=== PATIENT | female | born 1935 ===

== ENCOUNTER 2024-01-07 15:50 | Inpatient (IN) | payer MEDICAID, MEDICARE ==
[~2024-01-07 15:50] MED LIST: Iopamidol 370 76% 100 ML VIAL ONE; Iopamidol-370 76% 500 ML MDV (1 ML CHARGE) ONE
[2024-01-07] MEDS ORDERED: niCARdipine 25 MG/10 ML SDV ONE (15:53)
[2024-01-07 16:05] LABS: #Basophils 0.04 10x3/uL (0.0-0.2); %Basophils 0.6 % (0.0-1.0); %Eosinophils 2.3 % (0.0-10.0); %Lymphocytes 29.8 % (21.0-51.0); %Monocytes 11.8 % (0.0-10.0); %Neutrophils 55.2 % (42.0-75.0); Hematocrit 30.1 % (36.0-47.0); Hemoglobin 9.4 g/dL (12.0-16.0); Mean Corpuscular HGB CONC 31.2 g/dL (32.0-36.0); Mean Corpuscular Hemoglobin 26.4 pg (27.0-31.0); Mean Corpuscular Volume 84.6 fL (78.0-98.0); Mean Platelet Volume 9.7 fL (7.4-10.4); Platelet Count 294 10x3/uL (130-400); RBC Distribution Width 15.6 % (11.5-14.5); Red Blood Cell (RBC) Count 3.56 mill/uL (4.20-5.40)
[2024-01-07 16:17] LABS: Lipase 17 U/L (8-78)
[2024-01-07 16:18] LABS: INR-International Normal Ratio 1.2; PTT 28.8 sec (22.9-36.1); Prothrombin Time 14.8 sec (12.0-14.7)
[2024-01-07 16:19] LABS: ALT (SGPT) 13 U/L (8-55); AST (SGOT) 22 U/L (5-34); Albumin 3.6 g/dL (3.4-4.8); Alkaline Phosphatase 78 U/L (40-110); Anion Gap 13 mmol/L (10-20); BUN (Urea Nitrogen) 17 mg/dL (9.8-20.1); Bilirubin, Total 0.4 mg/dL (0.2-1.2); Calc. Creatinine Clearance 0 mL/min (70-130); Calcium 8.9 mg/dL (7.8-10.44); Carbon Dioxide 24 mmol/L (23-31); Chloride 104 mmol/L (98-107); Estimated GFR 63; Globulin 3.2 g/dL (2.4-3.5); Glucose 109 mg/dL (83-110); Potassium 4.2 mmol/L (3.5-5.1); Protein, Total 6.8 g/dL (5.8-8.1); Sodium 137 mmol/L (136-145)
[2024-01-07 16:20] LABS: Acetaminophen Less than 10 mcg/mL (Less than 10); Alcohol Less than 10.0 mg/dL (Less than 10); Salicylate Less than 8.0 mg/dL (Less than 8.0)
[2024-01-07] MEDS ORDERED: Etomidate 40 MG (20 mL) VIAL ONE (16:20)
[2024-01-07] MEDS ORDERED: Rocuronium Bromide 10 MG/ML (10ML VIAL) ONE (16:20)
[2024-01-07 16:25] LABS: Troponin I 0.014 ng/mL (< 0.028)
[2024-01-07] MEDS ORDERED: Vasopressin 20 UNITS/ML VIAL ONE (16:31)
[2024-01-07] MEDS ORDERED: fentaNYL PF 100 MCG/2 ML SYRINGE ONE (16:31)
[2024-01-07] MEDS ORDERED: SUGAMMADEX SODIUM 200 MG/2 ML VIAL ONE (16:31)
[2024-01-07] MEDS ORDERED: PHENYLEPHRINE-NS 100 MCG/ML 10 ML SYRINGE ONE (16:32)
[2024-01-07] MEDS ORDERED: Heparin 10,000 UNITS/ 10 ML VIAL ONE (16:37)
[2024-01-07 16:46] LABS: Actual Bicarbonate (HCO3a) 22.2 mEq/L (22-28); Analyzer IN Cardio ER; Base Excess (BEa) -0.5 mEq/L (-2.0 to +3.0); CO2 Tension 29.3 mmHg (35.0-45.0); Calcium, Ionized (arterial) 1.11 mmol/L (1.12-1.30); Carboxyhemoglobin (COHb) 0.7 gm% (0.0-3.0); Hematocrit-ABG 28 % (36.0-47.0); Hemoglobin (Hb) 9.5 g/dL (12.0-16.0); Potassium - ABG Lab 3.34 mmol/L (3.70-5.30); pH, Arterial 7.497 (7.35-7.45)
[2024-01-07 16:49] LABS: Digoxin 0.75 ng/mL (0.8-2.0)
[2024-01-07 17:13] LABS: ALV-art Gradient -76.125 mmHg (0-20); Puncture Site Left Radial artery
[2024-01-07] MEDS ORDERED: Communication Order-Pharmacy FS SCH (17:30)
[2024-01-07] MEDS ORDERED: niCARdipine 25 MG in Sodium Chloride 0.9% 250 ML 250 ML IVPB PRN (17:30)
[2024-01-07] MEDS ORDERED: Tenecteplase 50 MG ONE (17:33)
[2024-01-07] MEDS: Sodium Chloride 0.9% 1,000 ML IV SCH (18:25)
[2024-01-07] MEDS: Fentanyl CADD 100 ML IV SCH (18:26)
[2024-01-07] MEDS: Labetalol HCl 100 MG/20 ML VIAL SLOW IVP PRN (19:21)
[2024-01-07 19:25] VITALS: BMI 25.4
[2024-01-07] MEDS: hydrALAZINE 20 MG/ML VIAL SLOW IVP PRN (19:52)
[2024-01-07] MEDS ORDERED: Ventilator Sedation Protocol 1 EACH FS SCH (19:55)
[2024-01-07] MEDS: Propofol 1,000 MG/100 ML VIAL IV PRN (20:12)
[2024-01-07] MEDS ORDERED: Fentanyl BOLUS 250 ML IVPB PRN (20:15)
[2024-01-07] MEDS ORDERED: Fentanyl CADD 100 ML IV SCH (20:15)
[2024-01-07] MEDS ORDERED: DISCONTINUE PREVIOUS NARCOTIC PAIN MEDICATIONS AND BENZODIAZEPINES FS SCH (20:15)
[2024-01-07] MEDS ORDERED: Morphine 2 MG/ML VIAL SLOW IVP PRN (20:15)
[2024-01-07] MEDS ORDERED: Propofol BOLUS 1,000 MG/100 ML VIAL IV PRN (20:15)
[2024-01-07] MEDS ORDERED: Dextrose 50% Abboject 50 ML SYRINGE SLOW IVP PRN (21:34)
[2024-01-07] MEDS ORDERED: Glucagon 1 MG/ML KIT IM PRN (21:34)
[2024-01-07] MEDS ORDERED: Dextrose 5% in Water 1,000 ML IV PRN (21:34)
[2024-01-08] MEDS: Famotidine/PF 20 mg/2ml Vial SLOW IVP SCH (10:06)
[2024-01-08 11:54] LABS: Base Excess -4.4 mEq/L (-2.0 to +3.0); Calcium, Ionized (venous) 1.01 mmol/L (1.16-1.32); Chloride (VBG) 106 mmol/L (98-106); Hematocrit-VBG 30 % (36.0-47.0); Hemoglobin (Hb) 10.1 g/dL (11.7-16.1); Potassium (VBG) 3.86 mmol/L (3.70-5.30); pH (venous) 7.429 (7.32-7.43)
[2024-01-08 12:17] LABS: Hematocrit 29.4 % (36.0-47.0); Hemoglobin 8.9 g/dL (12.0-16.0)
[2024-01-08 12:31] LABS: Anion Gap 10 mmol/L (10-20); BUN (Urea Nitrogen) 13 mg/dL (9.8-20.1); Calc. Creatinine Clearance 60 mL/min (70-130); Calcium 8.1 mg/dL (7.8-10.44); Carbon Dioxide 22 mmol/L (23-31); Chloride 110 mmol/L (98-107); Estimated GFR 83; Glucose 119 mg/dL (83-110); Potassium 3.7 mmol/L (3.5-5.1); Sodium 138 mmol/L (136-145)
[2024-01-08] MEDS: Lorazepam 2 MG/ML VIAL SLOW IVP PRN (19:12)
[2024-01-08 19:36] LABS: Cardiac Risk 3.3 (Less than 4.5)
[2024-01-09] MEDS: Famotidine/PF 20 mg/2ml Vial SLOW IVP SCH (02:45)
[2024-01-09] MEDS: FLU (Fluad Triv) TS24-25 (65UP)/MF59C/PF 45 MCG/0.5 ML Syringe IM ONE (02:46)
[2024-01-09 04:08] LABS: Hematocrit 28.2 % (36.0-47.0); Hemoglobin 8.5 g/dL (12.0-16.0); Mean Corpuscular HGB CONC 30.1 g/dL (32.0-36.0); Mean Corpuscular Hemoglobin 26.6 pg (27.0-31.0); Mean Corpuscular Volume 88.1 fL (78.0-98.0); Mean Platelet Volume 10.1 fL (7.4-10.4); Platelet Count 198 10x3/uL (130-400); RBC Distribution Width 16.2 % (11.5-14.5)
[2024-01-09 04:21] LABS: Anion Gap 11 mmol/L (10-20); BUN (Urea Nitrogen) 10 mg/dL (9.8-20.1); Calc. Creatinine Clearance 69 mL/min (70-130); Calcium 7.8 mg/dL (7.8-10.44); Carbon Dioxide 18 mmol/L (23-31); Chloride 111 mmol/L (98-107); Estimated GFR 85; Glucose 100 mg/dL (83-110); Potassium 3.3 mmol/L (3.5-5.1); Sodium 137 mmol/L (136-145)
[2024-01-09 04:45] LABS: Anisocytosis SLIGHT = 6-15 cells HPF (0-5); Band 5 % (5-11); Burr Cells SLIGHT = 2-5 cells HPF (0-1); Eosinophils 3 % (0-10); Lymphocytes 7 % (21-51); Monocytes 9 % (0-10); Neutrophil 75 % (42-75); Ovalocytes SLIGHT = 2-5 cells HPF (0-1); Platelet Adequacy Comment Platelets Normal; Polychromasia SLIGHT = 2-3 cells HPF (0-2)
[2024-01-09] MEDS: Amlodipine 5 MG TAB PER TUBE SCH (08:56)
[2024-01-09] MEDS: Aspirin 81 mg Enteric Coated Tablet PO SCH (08:56)
[2024-01-09] MEDS ORDERED: Electrolyte Replacement Protocol FS PRN (09:00)
[2024-01-09] MEDS: Potassium Chloride 20 MEQ TAB PO SCH (09:17)
[2024-01-09] MEDS: Atorvastatin Calcium 40 MG TAB PO SCH (21:01)
[2024-01-09] MEDS: Enoxaparin 40 MG (0.4 mL) SYRINGE SC SCH (21:06)
[2024-01-10 04:14] LABS: #Basophils 0.03 10x3/uL (0.0-0.2); %Basophils 0.4 % (0.0-1.0); %Eosinophils 0.7 % (0.0-10.0); %Lymphocytes 14.5 % (21.0-51.0); %Neutrophils 69.1 % (42.0-75.0); Hematocrit 23.3 % (36.0-47.0); Hemoglobin 6.8 g/dL (12.0-16.0); Mean Corpuscular HGB CONC 29.2 g/dL (32.0-36.0); Mean Corpuscular Hemoglobin 26.7 pg (27.0-31.0); Mean Corpuscular Volume 91.4 fL (78.0-98.0); Mean Platelet Volume 9.9 fL (7.4-10.4); Platelet Count 178 10x3/uL (130-400); RBC Distribution Width 16.1 % (11.5-14.5); Red Blood Cell (RBC) Count 2.55 mill/uL (4.20-5.40)
[2024-01-10 04:31] LABS: Anion Gap 10 mmol/L (10-20); BUN (Urea Nitrogen) 12 mg/dL (9.8-20.1); Calc. Creatinine Clearance 66 mL/min (70-130); Calcium 7.8 mg/dL (7.8-10.44); Carbon Dioxide 20 mmol/L (23-31); Chloride 113 mmol/L (98-107); Estimated GFR 85; Glucose 121 mg/dL (83-110); Potassium 3.7 mmol/L (3.5-5.1); Sodium 139 mmol/L (136-145)
[2024-01-10] MEDS ORDERED: Aspirin 81 mg Enteric Coated Tablet PO SCH (09:00)
[2024-01-10] MEDS: Aspirin 300 MG Suppository PR SCH (10:19)
[2024-01-11 04:44] LABS: #Basophils 0.03 10x3/uL (0.0-0.2); %Basophils 0.4 % (0.0-1.0); %Eosinophils 0.9 % (0.0-10.0); %Lymphocytes 12.6 % (21.0-51.0); %Monocytes 8.4 % (0.0-10.0); %Neutrophils 76.7 % (42.0-75.0); Hematocrit 25.8 % (36.0-47.0); Hemoglobin 7.9 g/dL (12.0-16.0); Mean Corpuscular HGB CONC 30.6 g/dL (32.0-36.0); Mean Corpuscular Hemoglobin 27.2 pg (27.0-31.0); Platelet Count 202 10x3/uL (130-400); RBC Distribution Width 16.3 % (11.5-14.5)
[2024-01-11 04:54] LABS: Anion Gap 13 mmol/L (10-20); BUN (Urea Nitrogen) 12 mg/dL (9.8-20.1); Calc. Creatinine Clearance 72 mL/min (70-130); Calcium 8.3 mg/dL (7.8-10.44); Carbon Dioxide 19 mmol/L (23-31); Chloride 113 mmol/L (98-107); Estimated GFR 86; Glucose 112 mg/dL (83-110); Potassium 3.3 mmol/L (3.5-5.1); Sodium 142 mmol/L (136-145)
[2024-01-11] MEDS: Potassium Chloride 20 MEQ TAB PO SCH (08:07)
[2024-01-11] MEDS: Potassium Chloride 20 MEQ in Premix 1 BAG IVPB SCH (09:59)
[2024-01-11 16:03] LABS: Potassium 3.6 mmol/L (3.5-5.1)
[2024-01-11] MEDS: Famotidine/PF 20 mg/2ml Vial SLOW IVP SCH (21:05)
[2024-01-12 05:18] LABS: #Basophils 0.03 10x3/uL (0.0-0.2); %Basophils 0.5 % (0.0-1.0); %Eosinophils 0.9 % (0.0-10.0); %Lymphocytes 16.4 % (21.0-51.0); %Neutrophils 72.9 % (42.0-75.0); Hematocrit 25.7 % (36.0-47.0); Hemoglobin 8.2 g/dL (12.0-16.0); Mean Corpuscular HGB CONC 31.9 g/dL (32.0-36.0); Mean Corpuscular Volume 87.7 fL (78.0-98.0); Platelet Count 241 10x3/uL (130-400); RBC Distribution Width 16.5 % (11.5-14.5); Red Blood Cell (RBC) Count 2.93 mill/uL (4.20-5.40)
[2024-01-12 05:31] LABS: Anion Gap 12 mmol/L (10-20); BUN (Urea Nitrogen) 12 mg/dL (9.8-20.1); Calc. Creatinine Clearance 75 mL/min (70-130); Calcium 8.2 mg/dL (7.8-10.44); Carbon Dioxide 20 mmol/L (23-31); Chloride 111 mmol/L (98-107); Estimated GFR 87; Glucose 98 mg/dL (83-110); Potassium 3.2 mmol/L (3.5-5.1); Sodium 140 mmol/L (136-145)
[2024-01-12] MEDS: Potassium Bicarbonate/Cit Ac 20 MEQ TAB PER TUBE SCH (08:22)
[2024-01-12 10:17] VITALS: BMI 25.6
[2024-01-12] MEDS: Potassium Chloride 20 MEQ in Premix 1 BAG IVPB SCH (10:40)
[2024-01-12 16:17] VITALS: BP 175/96; TEMP 98.3
== END 2024-01-12 17:14 | disposition hospice, home (50) | DRG 61 ==
LOC: ERS 15:50 → CCL 16:54 → CCU 17:15 → T4-A 01-10 16:31
PROVIDERS: ADMIT Neurological Surgery; ATTEND Neurological Surgery
PROC: 0BH17EZ Insertion of Endotracheal Airway into Trachea, Via Natural or Artificial Opening (ICD-10-PCS; principal; 2024-01-07)
PROC: 3E03317 Introduction of Other Thrombolytic into Peripheral Vein, Percutaneous Approach (ICD-10-PCS; 2024-01-07)
PROC: B31R1ZZ Fluoroscopy of Intracranial Arteries using Low Osmolar Contrast (ICD-10-PCS; 2024-01-07)
PROC: 5A1945Z Respiratory Ventilation, 24-96 Consecutive Hours (ICD-10-PCS; 2024-01-07)
DX: I63.412 Cerebral infarction due to embolism of left middle cerebral artery (principal); G93.6 Cerebral edema; J96.00 Acute respiratory failure, unspecified whether with hypoxia or hypercapnia; G81.93 Hemiplegia, unspecified affecting right nondominant side; I10 Essential (primary) hypertension; I48.91 Unspecified atrial fibrillation; D64.9 Anemia, unspecified; Z66 Do not resuscitate; R29.735 NIHSS score 35; R47.01 Aphasia; E78.5 Hyperlipidemia, unspecified; Z88.2 Allergy status to sulfonamides
CPT/HCPCS: 31500; 36224; 36415; 36416; 36430; 36600; 43753; 51702; 70450; 70496; 70498; 71045; 74018; 80048; 80053; 80061; 80162; 80307; 82805; 83690; 84484; 85014; 85018; 85025; 85610; 85730; 86850; 86900; 86901; 93005; 93306; 94002; 94003; 94760; 96374; 96375; C1769; C1887; C1894; J0360; J1644; J1650; J2060; J2704; J3010; J3101; J3480; J3490; J7030; P9016; Q9967